=== PATIENT | female | born 1995 | race Caucasian/White ===

== ENCOUNTER 2017-05-15 16:43 | Emergency (ER) | payer OTHER ==
--- NOTE | 2017-05-15 16:56 | PDOC ---
History of Present Illness - General Chief Complaint: Syncope/Near Syncope Stated Complaint: SYNCOPE Time Seen by Provider: 05/15/17 16:50 Past History - Past Medical History Allergies/Adverse Reactions: Allergies Allergy/AdvReac Type Severity Reaction Status Date / Time No Known Allergies Allergy Verified 05/15/17 17:02 Home Medications: Ambulatory Orders Vit/Iron Fumarate/FA [ Tablet] 1 each PO DAILY 05/15/17 *Physical Exam - Vital Signs Last Vital Signs Temp Pulse Resp BP Pulse Ox 98.4 F 74 20 108/65 99 05/15/17 18:52 05/15/17 18:52 05/15/17 18:52 05/15/17 18:52 05/15/17 18:52 ED Treatment Course - LABORATORY CBC & Chemistry Diagram: 05/15/17 18:26 05/15/17 18:26 - ADDITIONAL ORDERS Additional order review: Laboratory Results 05/15/17 05/15/17 18:26 18:26 Sodium 138 Potassium 4.3 Chloride 105 Carbon Dioxide 25 Anion Gap 8 BUN 7 Creatinine 0.6 Creat Clearance w eGFR > 60 Random Glucose 92 Calcium 8.9 Total Bilirubin 0.3 AST 15 ALT 13 Alkaline Phosphatase 47 Total Protein 6.7 Albumin 3.5 Serum , Qual Positive Urine Color Yellow Urine Appearance Cloudy Urine pH 6.0 Urine Protein Negative Urine Glucose (UA) Negative Urine Ketones 1+ H Urine Blood Negative Urine Nitrite Negative Urine Bilirubin Negative Urine Urobilinogen Negative Ur Leukocyte Esterase 3+ H Urine RBC 3 Urine WBC 24 Ur Epithelial Cells Many Urine Bacteria Rare Hyaline Casts 1 Urine Mucus Few 05/15/17 18:26 RBC 3.47 L MCV 96.8 H MCHC 33.9 RDW 13.8 MPV 7.8 - Medications Given in the ED: ED Medications Discontinued Medications Generic Name Dose Route Start Last Admin Trade Name Freq PRN Reason Stop Dose Admin Sodium Chloride 1,000 ml 05/15/17 17:13 05/15/17 17:30 Normal Saline - IV 05/15/17 17:14 1,000 ml ONCE ONE Administration Medical Decision Making - Medical Decision Making 05/15/17 20:32 22 yo female had syncopal episode today after spending the day outside at the pool and not eating all day. Episode was very short and pt arrival axox3. Pt reports she is and is followed by OB.data conversion developer at [facility] in the [place] and has documented IUP -she denies any vaginal cramping or bleeding -denies any chest pain or dyspnea, stable vital signs LMP in January 2017 PMG had previous miscarriage in the past -pt had juice and a sandwich and feels fine now. Labs reviewed, bedside US showed IUP -Pt has another appt with her boiler helper in June IMP syncope/pregnacy I saw this pt with the medical assistant prn Dr Nikhil Stern 05/15/17 20:38 *DC/Admit/Observation/Transfer Diagnosis at time of Disposition: Syncope Qualifiers: Syncope type: unspecified Qualified Code(s): R55 - Syncope and collapse - Discharge Dispostion Disposition: HOME Condition at time of disposition: Improved - Patient Instructions Printed Discharge Instructions: DI for Syncope in Adults (Fainting) Additional Instructions: Please return to the ER immediately if you experience worsening symptoms including abdominal pain, worsening weakness, chest pain, heart palpitations. Please follow up with your Primary Care Provider to discuss your ER visit. ED Attending (Resident) HPI - General Chief Complaint: Syncope/Near Syncope Stated Complaint: SYNCOPE Time Seen by Provider: 05/15/17 16:50
[2017-05-15] MEDS ORDERED: SODIUM CHLORIDE 0.9% 1000 ML INFUS.BAG IV ONE (17:13)
[2017-05-15 17:40] VITALS: BMI 22.3
--- NOTE | 2017-05-15 17:40 | PDOC ---
History of Present Illness - General Chief Complaint: Syncope/Near Syncope Stated Complaint: SYNCOPE Time Seen by Provider: 05/15/17 16:50 History Source: Patient, Sibling Exam Limitations: No Limitations - History of Present Illness Initial Comments: 05/15/17 17:37 The patient is a 22F (10 weeks ) with no PMH who presented to the ED for syncope. The patient was at a waterpark and standing in line to get food when she felt nauseous, dizzy, and syncopized, hitting her jaw on a bar as she was coming down. She did not fall on her stomach. This has never happened before. She was down for 1 minute and was not disoriented or confused when she woke up. LMP March 06. Her sister witness the fall and stated that there was no shaking, tongue biting, or bladder/fecal incontinence. The patient denies any vaginal bleeding/ discharge/cramping. She follows up with [facility]. ROS+: per HPI ROS- headache, numbness, tingling, weakness, nausea, vomiting, fever, chills, CP , SOB, dizziness, lightheadedness, also per HPI Allergies: NKDA Surg: None Social: does not smoke, drink, use recreational drugs Past History - Past Medical History Allergies/Adverse Reactions: Allergies Allergy/AdvReac Type Severity Reaction Status Date / Time No Known Allergies Allergy Verified 05/15/17 17:02 Other medical history: none - Psycho/Social/Smoking Cessation Hx Anxiety: No Suicidal Ideation: No Smoking History: Never smoked Have you smoked in the past 12 months: No Information on smoking cessation initiated: No Hx Alcohol Use: No Drug/Substance Use Hx: No Substance Use Type: None Review of Systems - Review of Systems Able to Perform ROS?: Yes Is the patient limited Yoruba proficient: No Constitutional: No: Chills, Fever HEENTM: No: Blurred Vision, Recent change in vision Respiratory: No: Shortness of Breath Cardiac (ROS): No: Chest Pain ABD/GI: No: Constipated, Diarrhea, Other (abd pain) : No: Burning, Dysuria, Discharge, Other (Vaginal bleeding, cramping) Neurological: No: Headache, Numbness, Paresthesia, Tingling, Weakness *Physical Exam - Vital Signs Last Vital Signs Temp Pulse Resp BP Pulse Ox 98.0 F 81 18 114/73 100 05/15/17 16:46 05/15/17 16:46 05/15/17 16:46 05/15/17 16:46 05/15/17 16:46 - Physical Exam General Appearance: Yes: Nourished, Appropriately Dressed Respiratory/Chest: positive: Lungs Clear, Normal Breath Sounds. negative: Respiratory Distress Cardiovascular: positive: Regular Rhythm, Regular Rate, S1, S2 Gastrointestinal/Abdominal: positive: Normal Bowel Sounds, Flat, Soft. negative : Tender Extremity: positive: Normal Inspection, Normal Range of Motion Integumentary: positive: Normal Color, Dry, Warm Neurologic: positive: chocolatier II-XII NML intact, Fully Oriented, Alert, Normal Mood/ Affect, Normal Response, Motor Strength 5/5 Heart Score/ECG Review - ECG Impressions Normal ECG: Yes ED Treatment Course - LABORATORY CBC & Chemistry Diagram: 05/15/17 18:26 05/15/17 18:26 Medical Decision Making - Medical Decision Making 05/15/17 18:03 Patient is a 10 week female who presented to the ED after a syncopal episode. No significant PMH. Workup includes b-HCG quantity, CBC, CMP, and EKG. Patient was fed while in room and states she feels better. I will await the results of the labs and update the patient. 05/15/17 18:49 Awaiting labs. Signed out to Dr. Beena Alfonso. *DC/Admit/Observation/Transfer - Attestations Physician Attestion: 05/15/17 18:04 I, Dr. Nikhil Stern, attest that this document has been prepared under my direction and personally reviewed by me in its entirety. I further attest, that it accurately reflects all work, treatment, procedures and medical decision -making performed by me.
[2017-05-15 18:38] LABS: MCH 32.8 pg (25.7-33.7); MCHC 33.9 g/dl (32.0-36.0); MEAN CELL VOLUME 96.8 fl (80-96); MEAN PLT VOLUME 7.8 fl (7.5-11.1); PLATELET COUNT 274 K/MM3 (134-434); RDW 13.8 % (11.6-15.6); WHITE BLOOD COUNT 12.2 K/mm3 (4.0-10.0)
[2017-05-15 18:52] VITALS: BP 108/65; PULSE 74; TEMP 98.4
[2017-05-15 18:57] LABS: ALBUMIN 3.5 g/dl (3.4-5.0); ALK PHOS 47 U/L (45-117); ANION GAP 8 (8-16); BILIRUBIN,TOTAL 0.3 mg/dL (0.2-1.0); CALCIUM 8.9 mg/dL (8.5-10.1); CO2 25 mmol/L (21-32); CREATININE 0.6 mg/dL (0.55-1.02); GLUCOSE,RANDOM 92 mg/dL (74-106); SGOT/AST 15 U/L (15-37); SGPT/ALT 13 U/L (12-78); TOT PROT 6.7 g/dl (6.4-8.2)
--- NOTE | 2017-05-15 18:59 | PDOC ---
*Physical Exam - Vital Signs Last Vital Signs Temp Pulse Resp BP Pulse Ox 98.4 F 74 20 108/65 99 05/15/17 18:52 05/15/17 18:52 05/15/17 18:52 05/15/17 18:52 05/15/17 18:52 - Physical Exam Comments: 05/15/17 19:49 General Appearance: Nourished. No Apparent Distress Respiratory/Chest: Lungs Clear, Normal Breath Sounds. No Crackles, Rales, Rhonchi, Wheezing Cardiovascular: Regular Rhythm, Regular Rate. No Murmur, Gallop/S3, Gallop/S4 Gastrointestinal/Abdominal: Normal Bowel Sounds, Flat, Soft. No Tenderness, Guarding, Rebound Extremity: Normal Capillary Refill Integumentary: Normal Color, Dry, Warm Neurologic: Fully Oriented, Alert, Normal Mood/Affect, Normal Response ED Treatment Course - LABORATORY CBC & Chemistry Diagram: 05/15/17 18:26 05/15/17 18:26 - ADDITIONAL ORDERS Additional order review: Laboratory Results 05/15/17 18:26 Serum , Qual Positive 05/15/17 18:26 RBC 3.47 L MCV 96.8 H MCHC 33.9 RDW 13.8 MPV 7.8 - Medications Given in the ED: ED Medications Discontinued Medications Generic Name Dose Route Start Last Admin Trade Name Freq PRN Reason Stop Dose Admin Sodium Chloride 1,000 ml 05/15/17 17:13 05/15/17 17:30 Normal Saline - IV 05/15/17 17:14 1,000 ml ONCE ONE Administration Progress Note - Progress Note Progress Note: Received signout from Dr. Stern. Patient is a 22 year old 10 week female who presents following a syncopal episode after not eating for an extended period of time. Work up has been negative thus far. Waiting on UA results and if negative anticipate discharge home with follow up with PCP. Medical Decision Making - Medical Decision Making 05/15/17 19:45 Patient's UA and other labs are unremarkable. Syncope likely due to the patient 's lack of food. She agrees to not go long periods without eating and will follow up with her PCP. *DC/Admit/Observation/Transfer Diagnosis at time of Disposition: Syncope Qualifiers: Syncope type: unspecified Qualified Code(s): R55 - Syncope and collapse - Discharge Dispostion Disposition: HOME Condition at time of disposition: Improved - Patient Instructions Printed Discharge Instructions: DI for Syncope in Adults (Fainting) Additional Instructions: Please return to the ER immediately if you experience worsening symptoms including abdominal pain, worsening weakness, chest pain, heart palpitations. Please follow up with your Primary Care Provider to discuss your ER visit. - Attestations Physician Attestion: 05/15/17 19:41 I, Dr. Silvio Chong, attest that this document has been prepared under my direction and personally reviewed by me in its entirety. I further attest, that it accurately reflects all work, treatment, procedures and medical decision -making performed by me.
[2017-05-15 19:31] LABS: URINE APPEARANCE CLOUDY; URINE BILIRUBIN NEGATIVE (NEGATIVE); URINE BLOOD NEGATIVE (NEGATIVE); URINE COLOR YELLOW; URINE GLUCOSE (UA) NEGATIVE (NEGATIVE); URINE KETONE 1+ (NEGATIVE); URINE LEUK ESTERASE 3+ (NEGATIVE); URINE NITRITE NEGATIVE (NEGATIVE); URINE PROTEIN NEGATIVE (NEGATIVE); URINE UROBILINOGEN NEGATIVE E.U./dl (0.2-1.0)
[2017-05-15 19:38] LABS: URINE BACTERIA RARE /hpf (NONE SEEN); URINE HYALINE CAST 1 /lpf; URINE MUCUS FEW; URINE RBC 3 /hpf (0-3); URINE WBC 24 /hpf (3-5)
--- NOTE | 2017-05-16 13:48 | EKG ---
Test Reason : Blood Pressure : / mmHG Vent. Rate : 077 BPM Atrial Rate : 077 BPM P-R Int : 130 ms QRS Dur : 090 ms QT Int : 400 ms P-R-T Axes : 006 078 039 degrees QTc Int : 452 ms NORMAL SINUS RHYTHM NORMAL ECG NO PREVIOUS ECGS AVAILABLE Confirmed by YOBANI LANDAVERDE MD ([id number]) on 05/16/2017 1:48:07 PM Referred By: Confirmed By:YOBANI LANDAVERDE MD
== END 2017-05-15 20:02 | disposition home or self-care (01) ==
LOC: JER 16:43
DX: O26.891 Other specified pregnancy related conditions, first trimester (principal); R55 Syncope and collapse; Z3A.10 10 weeks gestation of pregnancy
CPT/HCPCS: 36415; 80053; 81003; 81015; 84703; 85027; 93005; 93010; 99285-25